=== PATIENT | male | born 1955 | race Hispanic/Latino ===

== ENCOUNTER 2018-01-26 12:24 | Outpatient (CLI) | payer MEDICARE ==
[2018-01-26 13:56] LABS: Mean Corpuscular Hemoglobin 32.8 pg (27.0-31.0); Mean Corpuscular Volume 99.5 fl (80.0-94.0); Mean Platelet Volume 7.9 fL (7.4-10.4); Platelet Count 280 thou/uL (130-400); RBC Distribution Width 11.8 % (11.5-14.5); Red Blood Cell (RBC) Count 4.57 mill/uL (4.70-6.10); White Blood Cell (WBC) Count 9.3 thou/uL (4.8-10.8)
[2018-01-26 14:19] LABS: Anion Gap 9 mmol/L (10-20); BUN (Urea Nitrogen) 18 mg/dL (8.4-25.7); Calc. Creatinine Clearance 0 mL/min (70-130); Calcium 9.3 mg/dL (7.8-10.44); Carbon Dioxide 28 mmol/L (23-31); Chloride 107 mmol/L (98-107); Estimated GFR-MDRD Greater than 90; Glucose 92 mg/dL (80-115); Potassium 4.6 mmol/L (3.5-5.1); Sodium 139 mmol/L (136-145)
[2018-01-26 14:57] LABS: Band 1 % (5-11); Eosinophils 9 % (0-10); Lymphocytes 21 % (21-51); MDiff Complete? YES; Monocytes 2 % (0-10); Neutrophil 54 % (42-75); PLT Morphology Comment Appears Adequate; RBC Morphology Normal; Reactive Lymphocytes 12 % (0-10)
== END 2018-01-26 12:25 | disposition home or self-care (01) ==
LOC: LABBT 12:24
PROVIDERS: ATTEND Orthopaedic Surgery
DX: Z01.812 Encounter for preprocedural laboratory examination (principal); M75.101 Unspecified rotator cuff tear or rupture of right shoulder, not specified as traumatic; M12.9 Arthropathy, unspecified

== ENCOUNTER 2018-01-26 12:30 | Inpatient (IN) | payer MEDICARE ==
[2018-02-02] MEDS ORDERED: Bupivacaine HCl 0.5%/Epinephrine 1:200,000/PF 30 ml Vial ONE (09:48)
[2018-02-02] MEDS ORDERED: CEFAZOLIN/Water 2 GM/20 ML SYRINGE ONE (12:44)
[2018-02-02] MEDS ORDERED: Morphine 2 MG/ML SYRINGE ONE (12:51)
[2018-02-02] MEDS ORDERED: Midazolam HCl 2 mg/2 ml Vial ONE (12:51)
[2018-02-02] MEDS ORDERED: Ondansetron HCl/PF 4 MG/2 ML Vial IV PRN (14:14)
[2018-02-02] MEDS ORDERED: Fentanyl 100 MCG/2 ML VIAL SLOW IVP PRN (14:14)
[2018-02-02] MEDS ORDERED: traMADol HCl 50 MG TAB PO PRN (14:14)
[2018-02-02] MEDS ORDERED: Acetaminophen 325 MG TAB PO PRN (14:14)
[2018-02-02] MEDS ORDERED: TETANUS AND DIPHTHERIA TOX/PF 0.5 ML DISP.SYRIN IM SCH (14:15)
[2018-02-02] MEDS ORDERED: Dexamethasone 20 MG/5 ML VIAL ONE (14:46)
[2018-02-02] MEDS ORDERED: Ondansetron HCl/PF 4 MG/2 ML Vial ONE (14:46)
[2018-02-02] MEDS ORDERED: Glycopyrrolate 0.2 MG/ML 5 ML SYRINGE ONE (14:46)
[2018-02-02] MEDS ORDERED: Lidocaine 1% PF 5 ML VIAL ONE (14:46)
[2018-02-02] MEDS ORDERED: ePHEDrine/0.9% NaCl/PF SYRINGE 50 mg/10 ml ONE (14:46)
[2018-02-02] MEDS ORDERED: Propofol 200 MG/20 ML VIAL ONE (14:46)
[2018-02-02] MEDS ORDERED: Promethazine HCl 25 MG/ML VIAL IM PRN (16:22)
[2018-02-02] MEDS ORDERED: Ondansetron HCl/PF 4 MG/2 ML Vial IVP PRN (16:22)
[2018-02-02] MEDS ORDERED: Promethazine HCl 25 MG/ML VIAL SLOW IVP PRN (16:22)
--- NOTE | 2018-02-02 16:49 | RAD ---
SINGLE VIEW OF THE RIGHT SHOULDER: Comparison: 12-04-15 History: Status post right shoulder arthroplasty. FINDINGS: Single view of the right shoulder shows the patient to be status post right shoulder arthroplasty wit hout perihardware lucency or fracture. The visualized right thorax is unremarkable. IMPRESSION: Status post right shoulder arthroplasty without evidence of complication. POS: [facility]
--- NOTE | 2018-02-02 17:06 | OP ---
DATE OF OPERATION: 02/02/2018 OPERATION: Right reverse shoulder arthroplasty. PREOPERATIVE DIAGNOSIS: Right rotator cuff arthropathy. POSTOPERATIVE DIAGNOSIS: Right rotator cuff arthropathy. COMPLICATIONS: None. ESTIMATED BLOOD LOSS: 150 mL. SURGEON: Nitin Velázquez M.D. PHARMACOVIGILANCE SCIENTIST: Mimi Aquino PA-C. INDICATIONS: Mr. Peres is a 62-year-old male who has advanced right shoulder rotator cuff arthro cher. He has had longstanding shoulder pain and weakness. I have given him multiple injections. Lane swann has failed conservative treatment and has steadily worsened. He has been indicated for reverse meaghan ulder arthroplasty at this point to restore function and relieve pain. Risks have been reviewed and he has elected to proceed. DESCRIPTION OF PROCEDURE: Mr. Peres was identified in the preoperative holding area. His correc t extremity was marked. He was carried to the operating room. He was positioned supine. General an esthesia was induced. A multidisciplinary timeout was performed. The right upper extremity was prep ped and draped in sterile fashion. We began the procedure with a deltopectoral approach to the shoulder. A 7-cm incision was made over the anterior shoulder. We dissected down through the subcutaneous tissues to the fascial level. The cephalic vein was identified. We developed the deltopectoral interval. At this point, we retracted the deltoid laterally and exposed the underlying conjoint tendon. We then released the coracoacromi al ligament. Next, we continued our dissection and isolated the biceps tendon which was cut. This a llowed development of the rotator interval. We then performed a tenotomy of the subscapularis tendon . Next, we dislocated the shoulder. At this point, we entered the intramedullary canal of the humer us from proximal to distal. We reamed up to a size 12, which gave a good fit with arsen. We used our appropriate resection guide off of this reamer. We resected the humeral head. We placed a prote cting sleeve over the proximal humerus. At this point, we retracted the humerus posteriorly and expo sed the glenoid surface. We placed a central guidewire into the glenoid after removing labral and soft tissues. We then reame d the glenoid surface. Next, we placed our baseplate, impacting the baseplate into our central peg h ole. We placed four screws locking the baseplate. Next, we placed a 42-mm glenosphere tightening th is appropriately with our central screw. We then moved back to the humerus. We broached our humerus and then reamed our proximal humerus. Th is allowed appropriate version. We trialed with a standard liner. This gave good fit with stability and full range of motion. We decided to accept this and placed our final components. A size 12 alisa m and standard humeral liner was used. Again, the shoulder was reduced. We then thoroughly irrigate d with copious lavage using Betadine. Finally, we closed with a #5 Ethibond suture for the subscapul brent repair followed by 2-0 Vicryl suture and kaleb for the skin. A sterile dressing was applied. The patient was taken to the recovery room in good condition without complication. IMPLANTS: [employer] reverse shoulder arthroplasty size 12 stem press fit with standard poly with a 42 mm standard glenosphere.
[2018-02-02 17:38] VITALS: BMI 29.0
[2018-02-02] MEDS: Ketorolac Tromethamine 30 MG/ML VIAL IVP SCH ×2 (18:31→23:35)
[2018-02-02] MEDS ORDERED: FLU VACC QS2017-18 36 mo. & older 0.5 ML SYRINGE IM ONE (21:00)
[2018-02-02] MEDS: CEFAZOLIN/Water 2 GM/20 ML SYRINGE SLOW IVP SCH (21:12)
[2018-02-02] MEDS: HYDROcodone/Acetaminophen 10/325 mg Tablet PO PRN (22:33)
[2018-02-03] MEDS: CEFAZOLIN/Water 2 GM/20 ML SYRINGE SLOW IVP SCH (05:15)
[2018-02-03] MEDS: Ketorolac Tromethamine 30 MG/ML VIAL IVP SCH (05:16)
[2018-02-03 06:01] LABS: #Lymphocytes 1.7 thou/uL (1.20-3.40); #Monocytes 1.3 thou/uL (0.11-0.59); #Neutrophils 8.5 thou/uL (1.40-6.50); %Basophils 0.3 % (0.0-1.0); %Eosinophils 0.4 % (0.0-10.0); %Lymphocytes 14.8 % (21.0-51.0); %Monocytes 11.1 % (0.0-10.0); %Neutrophils 73.5 % (42.0-75.0); Hemoglobin 12.2 g/dL (14.0-18.0); Mean Corpuscular HGB CONC 32.2 g/dL (32.0-36.0); Mean Corpuscular Hemoglobin 31.3 pg (27.0-31.0); Mean Corpuscular Volume 97.2 fl (80.0-94.0); Mean Platelet Volume 7.8 fL (7.4-10.4); Platelet Count 237 thou/uL (130-400); RBC Distribution Width 11.7 % (11.5-14.5); Red Blood Cell (RBC) Count 3.91 mill/uL (4.70-6.10); White Blood Cell (WBC) Count 11.5 thou/uL (4.8-10.8)
[2018-02-03 08:43] VITALS: BP 161/69; TEMP 98
[2018-02-03] MEDS: HYDROcodone/Acetaminophen 10/325 mg Tablet PO PRN (09:50)
== END 2018-02-03 10:49 | disposition home or self-care (01) | DRG 483 ==
LOC: SURG A 02-02 11:20 → SURG B 02-02 16:34
PROVIDERS: ADMIT Orthopaedic Surgery; ATTEND Orthopaedic Surgery
PROC: 0RRJ00Z Replacement of Right Shoulder Joint with Reverse Ball and Socket Synthetic Substitute, Open Approach (ICD-10-PCS; principal; 2018-02-02)
DX: M12.811 Other specific arthropathies, not elsewhere classified, right shoulder (principal); E11.9 Type 2 diabetes mellitus without complications; I10 Essential (primary) hypertension; G80.9 Cerebral palsy, unspecified; Z87.891 Personal history of nicotine dependence; F32.9 Major depressive disorder, single episode, unspecified; F70 Mild intellectual disabilities
CPT/HCPCS: 36415; 85025; 90471; 90682; 90732; G0008; G0009; G8987-GO-CJ; G8988-GO-CJ; G8989-GO-CJ; J0670; J1100; J1885; J2001; J2250; J2270; J2405; J2704; Q2036

== ENCOUNTER 2025-08-22 09:26 | Outpatient (CLI) | payer MEDICARE | END 2025-08-22 09:27 | disposition home or self-care (01) | LOC: RAD 09:26 | PROVIDERS: ATTEND Internal Medicine Critical Care Medicine | DX: R06.00 Dyspnea, unspecified (principal); I51.7 Cardiomegaly | CPT/HCPCS: 71046 ==